=== PATIENT | female | born 1995 | race Caucasian/White ===

== ENCOUNTER 2022-12-29 13:35 | Observation (INO) | payer OTHER, SELFPAY ==
[2022-12-29 14:23] VITALS: BMI 33.6
[2022-12-29] MEDS ORDERED: hydrALAZINE 20 MG/ML VIAL SLOW IVP PRN ×2 (14:51→19:54)
[2022-12-29] MEDS ORDERED: Ondansetron PF 4 MG/2 ML Vial IVP SCH (15:00)
[2022-12-29] MEDS ORDERED: Acetaminophen 500 MG TAB PO SCH ×2 (15:00→20:00)
[2022-12-29] MEDS ORDERED: Lactated Ringer's 1,000 ML IV SCH ×2 (15:00→20:00)
[2022-12-29 16:07] LABS: Bilirubin Neg (Negative); Blood, Urine 10 (Negative); Clarity Clear (Clear); Glucose, Urine (Dipstick) Normal (Negative); Ketone, Urine 50 mg/dL (Negative); Leukocyte Negative (Negative); Nitrite Negative (Negative); Protein, Urine (Dipstick) Negative (Neg-Trace); Urobilinogen Normal mg/dL (Less than 2)
[2022-12-29 16:13] LABS: #Monocytes 0.5 10x3/uL (0.0-1.1); #Neutrophils 9.4 10x3/uL (1.5-8.4); %Basophils 0.3 % (0.0-2.0); %Eosinophils 0.1 % (0.0-6.0); %Lymphocytes 3.3 % (18.0-47.0); %Monocytes 5.2 % (0.0-10.0); %Neutrophils 90.5 % (40.0-75.0); Hematocrit 34.3 % (34.9-44.5); Hemoglobin 11.2 g/dL (12.0-15.5); Mean Corpuscular HGB CONC 32.7 g/dL (32.0-36.0); Mean Corpuscular Hemoglobin 27.7 pg (27.0-33.0); Mean Corpuscular Volume 84.9 fl (81.6-98.3); Mean Platelet Volume 11.1 fl (7.4-10.4); Platelet Count 186 10x3/uL (150-450); RBC Distribution Width 13.8 % (11.5-14.5); Red Blood Cell (RBC) Count 4.04 10x6/uL (3.90-5.03); White Blood Cell (WBC) Count 10.4 10x3/uL (3.5-10.5)
[2022-12-29 16:17] LABS: Bacteria/HPF 2+ HPF (None Seen); CAUTI Indications for Culture Pregnancy; RBC/HPF 0-3 HPF (0-3)
[2022-12-29 16:20] LABS: Mucous/LPF Rare LPF (<2+)
[2022-12-29 16:21] LABS: Urine Culture Reflex Yes Yes
[2022-12-29 16:38] LABS: ALT (SGPT) 13 U/L (8-55); AST (SGOT) 20 U/L (5-34); Albumin 3.3 g/dL (3.5-5.0); Alkaline Phosphatase 89 U/L (40-110); Anion Gap 15 mmol/L (10-20); BUN (Urea Nitrogen) 6 mg/dL (7.0-18.7); Calc. Creatinine Clearance 154 mL/min (70-130); Calcium 9.2 mg/dL (7.8-10.44); Carbon Dioxide 20 mmol/L (22-29); Chloride 102 mmol/L (98-107); Estimated GFR 118; Glucose 82 mg/dL (70-105); Potassium 3.9 mmol/L (3.5-5.1); Protein, Total 6.3 g/dL (6.0-8.3); Sodium 133 mmol/L (136-145)
[2022-12-29 17:52] LABS: Fetal Membranes Rupture No Membranes Rupture (No Rupture)
[2022-12-29] MEDS ORDERED: cefTRIAXone\\ROCEPHIN 1 GM in Sodium Chloride 0.9% 100 ML IVPB SCH (18:30)
[2022-12-29] MEDS ORDERED: Dextrose 5%-Lactated Ringers 1,000 ML IV SCH ×2 (18:30→20:00)
[2022-12-29] MEDS ORDERED: Acetaminophen 500 MG TAB PO PRN (19:54)
[2022-12-29] MEDS ORDERED: Ondansetron PF 4 MG/2 ML Vial IVP PRN (19:54)
[2022-12-30] MEDS ORDERED: Methylergonovine 0.2 MG/ML VIAL IM SCH (00:30)
[2022-12-30] MEDS ORDERED: Morphine 4 MG/ML VIAL SLOW IVP SCH (03:15)
[2022-12-30 04:29] LABS: #Monocytes 0.6 10x3/uL (0.0-1.1); #Neutrophils 6.6 10x3/uL (1.5-8.4); %Basophils 0.3 % (0.0-2.0); %Eosinophils 0.1 % (0.0-6.0); %Lymphocytes 7.2 % (18.0-47.0); %Monocytes 7.4 % (0.0-10.0); %Neutrophils 83.7 % (40.0-75.0); Hematocrit 30.1 % (34.9-44.5); Hemoglobin 9.8 g/dL (12.0-15.5); Mean Corpuscular HGB CONC 32.6 g/dL (32.0-36.0); Mean Corpuscular Hemoglobin 27.8 pg (27.0-33.0); Mean Corpuscular Volume 85.3 fl (81.6-98.3); Mean Platelet Volume 11.1 fl (7.4-10.4); Platelet Count 157 10x3/uL (150-450); RBC Distribution Width 13.9 % (11.5-14.5); Red Blood Cell (RBC) Count 3.53 10x6/uL (3.90-5.03); White Blood Cell (WBC) Count 7.8 10x3/uL (3.5-10.5)
[2022-12-30 04:36] LABS: ALT (SGPT) 13 U/L (8-55); AST (SGOT) 23 U/L (5-34); Albumin 2.9 g/dL (3.5-5.0); Alkaline Phosphatase 79 U/L (40-110); Anion Gap 13 mmol/L (10-20); BUN (Urea Nitrogen) 4 mg/dL (7.0-18.7); Bilirubin, Total 0.6 mg/dL (0.2-1.2); Calc. Creatinine Clearance 161 mL/min (70-130); Calcium 8.4 mg/dL (7.8-10.44); Carbon Dioxide 18 mmol/L (22-29); Chloride 108 mmol/L (98-107); Estimated GFR 121; Globulin 2.7 g/dL (2.4-3.5); Glucose 95 mg/dL (70-105); Potassium 3.5 mmol/L (3.5-5.1); Protein, Total 5.6 g/dL (6.0-8.3); Sodium 135 mmol/L (136-145)
[2022-12-30] MEDS ORDERED: Aspirin Chewable 81 MG TAB PO SCH (09:00)
== END 2022-12-30 08:38 | disposition home or self-care (01) ==
LOC: CSHLD/OP 13:35 → CSHLD 22:44
PROVIDERS: ADMIT Obstetrics & Gynecology; ATTEND Obstetrics & Gynecology
DX: O47.03 False labor before 37 completed weeks of gestation, third trimester (principal); O99.891 Other specified diseases and conditions complicating pregnancy; R50.9 Fever, unspecified; O10.913 Unspecified pre-existing hypertension complicating pregnancy, third trimester; O99.513 Diseases of the respiratory system complicating pregnancy, third trimester; J45.990 Exercise induced bronchospasm; O99.343 Other mental disorders complicating pregnancy, third trimester; F90.9 Attention-deficit hyperactivity disorder, unspecified type; Z3A.36 36 weeks gestation of pregnancy; Z79.899 Other long term (current) drug therapy; Z79.82 Long term (current) use of aspirin
CPT/HCPCS: 36415; 76815; 76819; 80053; 81001; 84112; 85025; 87086; 96374; 99285; G0378; J0696; J2270; J2405; J3490

== ENCOUNTER 2023-01-05 12:34 | Inpatient (IN) | payer OTHER ==
[2023-01-05 12:54] VITALS: BMI 33.6
[2023-01-05] MEDS ORDERED: hydrALAZINE 20 MG/ML VIAL SLOW IVP PRN ×2 (13:23→17:34)
[2023-01-05 14:31] LABS: Hematocrit 33.1 % (34.9-44.5); Hemoglobin 10.8 g/dL (12.0-15.5); Mean Corpuscular HGB CONC 32.6 g/dL (32.0-36.0); Mean Corpuscular Hemoglobin 27.2 pg (27.0-33.0); Mean Corpuscular Volume 83.4 fl (81.6-98.3); Platelet Count 263 10x3/uL (150-450); RBC Distribution Width 13.4 % (11.5-14.5); Red Blood Cell (RBC) Count 3.97 10x6/uL (3.90-5.03); White Blood Cell (WBC) Count 8.5 10x3/uL (3.5-10.5)
[2023-01-05 14:38] LABS: ALT (SGPT) 40 U/L (8-55); AST (SGOT) 47 U/L (5-34); Albumin 3.2 g/dL (3.5-5.0); Alkaline Phosphatase 95 U/L (40-110); Anion Gap 15 mmol/L (10-20); BUN (Urea Nitrogen) 7 mg/dL (7.0-18.7); Bilirubin, Total 0.3 mg/dL (0.2-1.2); Calc. Creatinine Clearance 156 mL/min (70-130); Calcium 9.2 mg/dL (7.8-10.44); Carbon Dioxide 20 mmol/L (22-29); Chloride 104 mmol/L (98-107); Estimated GFR 120; Globulin 3.1 g/dL (2.4-3.5); Glucose 99 mg/dL (70-105); Protein, Total 6.3 g/dL (6.0-8.3); Sodium 135 mmol/L (136-145)
[2023-01-05 15:10] LABS: Creatinine, Urine 29.68 mg/dL (47-110); Protein, Urine Random Quant Less than 10 mg/dL (1-14)
[2023-01-05 16:40] LABS: Syphilis Antibody Nonreactive (Nonreactive); Syphilis Antibody Index 0.03 S/CO (<1.00 Non-Reactive)
[2023-01-05 16:42] LABS: HBSAg Index 0.16 S/CO (0-0.99); HIV (1/2) Antibody/Antigen Non-Reactive (NonReactive); HIV 1/2 INDEX 0.16 S/CO (<1.00); Hep B Surf Ag - L&D Non-Reactive S/CO (NonReactive)
[2023-01-05] MEDS ORDERED: fentaNYL 50 mcg/mL 1 mL Vial SLOW IVP PRN (17:34)
[2023-01-05] MEDS ORDERED: Ondansetron PF 4 MG/2 ML Vial IVP PRN (17:34)
[2023-01-05] MEDS ORDERED: HYDROcodone/Acetaminophen 5/325 mg Tablet PO PRN ×2 (17:34)
[2023-01-05] MEDS ORDERED: Lidocaine 1% (PF) 30 ML VIAL SC PRN (17:34)
[2023-01-05] MEDS ORDERED: Ibuprofen 800 MG TAB PO PRN (17:34)
[2023-01-05] MEDS ORDERED: Promethazine HCl 25 MG/ML VIAL IM PRN (17:34)
[2023-01-05] MEDS ORDERED: Lactated Ringer's 1,000 ML IV SCH (17:45)
[2023-01-05] MEDS ORDERED: Misoprostol 100 MCG TAB VAG SCH (17:45)
[2023-01-05] MEDS ORDERED: Oxytocin 30 units/NS 500 ML 500 ML IV SCH ×3 (17:45)
[2023-01-05] MEDS: Misoprostol 100 MCG TAB VAG SCH (21:30)
[2023-01-05] MEDS ORDERED: Calcium Carbonate 500 MG ChewTAB PO PRN (21:55)
[2023-01-06] MEDS: Misoprostol 100 MCG TAB VAG SCH (00:35)
[2023-01-06] MEDS ORDERED: Dinoprostone 10 MG Suppository VAG SCH (08:00)
[2023-01-06 08:39] LABS: Hematocrit 35.3 % (34.9-44.5); Hemoglobin 11.7 g/dL (12.0-15.5); Mean Corpuscular HGB CONC 33.1 g/dL (32.0-36.0); Mean Corpuscular Hemoglobin 27.4 pg (27.0-33.0); Mean Corpuscular Volume 82.7 fl (81.6-98.3); Platelet Count 290 10x3/uL (150-450); RBC Distribution Width 13.4 % (11.5-14.5); Red Blood Cell (RBC) Count 4.27 10x6/uL (3.90-5.03)
[2023-01-06 08:59] LABS: ALT (SGPT) 40 U/L (8-55); AST (SGOT) 39 U/L (5-34); Albumin 3.4 g/dL (3.5-5.0); Alkaline Phosphatase 98 U/L (40-110); Anion Gap 15 mmol/L (10-20); BUN (Urea Nitrogen) 7 mg/dL (7.0-18.7); Bilirubin, Total 0.3 mg/dL (0.2-1.2); Calc. Creatinine Clearance 161 mL/min (70-130); Calcium 9.4 mg/dL (7.8-10.44); Carbon Dioxide 20 mmol/L (22-29); Chloride 106 mmol/L (98-107); Estimated GFR 121; Globulin 3.3 g/dL (2.4-3.5); Glucose 81 mg/dL (70-105); Potassium 4.1 mmol/L (3.5-5.1); Protein, Total 6.7 g/dL (6.0-8.3); Sodium 137 mmol/L (136-145)
[2023-01-06] MEDS ORDERED: fentaNYL/Ropivacaine Epidural 100 ML ONE (10:40)
[2023-01-06] MEDS ORDERED: Moisturizing Cream (Eucerin) 113 GM JAR TOP PRN ×2 (10:41→14:53)
[2023-01-06] MEDS ORDERED: diphenhydrAMINE 50 MG/ML VIAL IVP PRN ×2 (10:41→14:53)
[2023-01-06] MEDS ORDERED: Ondansetron PF 4 MG/2 ML Vial IVP PRN ×4 (10:41→17:06)
[2023-01-06] MEDS ORDERED: Acetaminophen 325 MG TAB PO PRN ×2 (10:41→17:06)
[2023-01-06] MEDS ORDERED: Naloxone HCl 0.4 mg/ml Vial IVP PRN ×4 (10:41→14:53)
[2023-01-06] MEDS ORDERED: Promethazine HCl 25 MG/ML VIAL IM PRN ×2 (10:41→14:53)
[2023-01-06] MEDS ORDERED: Lactated Ringer's 500 ML IV PRN (10:41)
[2023-01-06] MEDS ORDERED: ePHEDrine Sulfate 50 MG/10 ML VIAL SLOW IVP PRN (10:41)
[2023-01-06] MEDS ORDERED: fentaNYL 2 mcg/Ropivacaine 0.2% Epidural 100 ML CADD EPIDURAL SCH (10:45)
[2023-01-06] MEDS ORDERED: Communication Order-Pharmacy FS SCH ×2 (10:45→15:00)
[2023-01-06] MEDS ORDERED: Oxytocin 10 UNITS/ML VIAL ONE ×3 (13:49→14:38)
[2023-01-06] MEDS ORDERED: Chloroprocaine 3% PF 20 ML VIAL ONE (13:50)
[2023-01-06] MEDS ORDERED: Ondansetron PF 4 MG/2 ML Vial ONE (13:53)
[2023-01-06] MEDS ORDERED: Dexamethasone 4 mg/ml Vial ONE (13:53)
[2023-01-06] MEDS ORDERED: CEFAZOLIN 2 GM VIAL ONE (13:53)
[2023-01-06] MEDS ORDERED: Ketorolac Tromethamine 30 MG/ML VIAL ONE (13:53)
[2023-01-06] MEDS ORDERED: Famotidine/PF 20 mg/2ml Vial SLOW IVP PRN (13:56)
[2023-01-06] MEDS ORDERED: Bicitra 30 ML UDCUP PO PRN (13:56)
[2023-01-06] MEDS ORDERED: CEFAZOLIN 2 GM in Sodium Chloride 0.9% 100 ML IVPB SCH (14:00)
[2023-01-06] MEDS ORDERED: Morphine PF 10 MG/10 ML VIAL ONE (14:14)
[2023-01-06] MEDS ORDERED: Meperidine HCl/PF 25 MG/ML VIAL SLOW IVP PRN (14:53)
[2023-01-06] MEDS ORDERED: fentaNYL 50 mcg/mL 1 mL Vial SLOW IVP PRN (14:53)
[2023-01-06] MEDS ORDERED: Promethazine HCl 25 MG SUPP PR PRN (14:53)
[2023-01-06] MEDS ORDERED: Ketorolac Tromethamine 30 MG/ML VIAL IVP PRN (14:53)
[2023-01-06] MEDS ORDERED: Naloxone HCl 0.4 mg/ml Vial IV PRN (14:53)
[2023-01-06] MEDS ORDERED: Simethicone Chewable 80 MG TAB PO PRN (17:06)
[2023-01-06] MEDS ORDERED: hydrALAZINE 20 MG/ML VIAL SLOW IVP PRN (17:06)
[2023-01-06] MEDS ORDERED: diphenhydrAMINE 25 MG CAP PO PRN (17:06)
[2023-01-06] MEDS ORDERED: Boostrix 0.5 ML (Tdap) VIAL (>/=7 yrs of age) IM ONE (17:06)
[2023-01-06] MEDS ORDERED: Bisacodyl 10 MG SUPP PR PRN (17:06)
[2023-01-06] MEDS ORDERED: Lanolin Ointment 7 GM TUBE TOP PRN (17:06)
[2023-01-06] MEDS ORDERED: Morphine 2 MG/ML VIAL SLOW IVP PRN (18:46)
[2023-01-06] MEDS ORDERED: Ketorolac Tromethamine 30 MG/ML VIAL IVP SCH (20:00)
[2023-01-07] MEDS ORDERED: HYDROcodone/Acetaminophen 5/325 mg Tablet PO PRN (03:00)
[2023-01-07] MEDS: Ferrous Sulfate 325 MG TAB PO SCH ×3 (05:26→21:12)
[2023-01-07] MEDS: Docusate 100 MG CAP PO SCH ×3 (05:26→21:13)
[2023-01-07] MEDS: Ibuprofen 800 MG TAB PO SCH ×3 (05:26→19:39)
[2023-01-07 05:55] LABS: Hematocrit 27.3 % (34.9-44.5); Mean Corpuscular Volume 84.8 fl (81.6-98.3); Mean Platelet Volume 11.7 fl (7.4-10.4); Platelet Count 304 10x3/uL (150-450); RBC Distribution Width 13.5 % (11.5-14.5); Red Blood Cell (RBC) Count 3.22 10x6/uL (3.90-5.03); White Blood Cell (WBC) Count 15.9 10x3/uL (3.5-10.5)
[2023-01-07] MEDS: Prenatal Vitamin 1 TAB PO SCH (07:57)
[2023-01-07] MEDS: HYDROcodone/Acetaminophen 5/325 mg Tablet PO PRN ×2 (12:51→21:13)
[2023-01-08] MEDS ORDERED: Polyethylene Glycol 3350 17 GM Packet PO SCH ×2 (02:00→04:15)
[2023-01-08] MEDS: Ibuprofen 800 MG TAB PO SCH (04:15)
[2023-01-08 06:05] VITALS: TEMP 98.4
[2023-01-08] MEDS: HYDROcodone/Acetaminophen 5/325 mg Tablet PO PRN ×2 (06:16→09:46)
[2023-01-08 08:33] VITALS: BP 137/75
[2023-01-08] MEDS ORDERED: Senokot S 8.6-50 MG TAB PO SCH (09:00)
[2023-01-08] MEDS: Docusate 100 MG CAP PO SCH (09:38)
[2023-01-08] MEDS: Prenatal Vitamin 1 TAB PO SCH (09:38)
[2023-01-08] MEDS: Ferrous Sulfate 325 MG TAB PO SCH (09:38)
== END 2023-01-08 11:30 | disposition home or self-care (01) | DRG 788 ==
LOC: CSHLD/OP 12:34 → CSHLD 15:42 → CSHPP 01-06 17:20
PROVIDERS: ADMIT Obstetrics & Gynecology; ATTEND Obstetrics & Gynecology
PROC: 10D00Z1 Extraction of Products of Conception, Low, Open Approach (ICD-10-PCS; principal; 2023-01-06)
DX: O10.92 Unspecified pre-existing hypertension complicating childbirth (principal); O62.1 Secondary uterine inertia; Z3A.37 37 weeks gestation of pregnancy; Z37.0 Single live birth; Z88.2 Allergy status to sulfonamides; O76 Abnormality in fetal heart rate and rhythm complicating labor and delivery
CPT/HCPCS: 36415; 51702; 80053; 82570; 84156; 85027; 86780; 86850; 86900; 86901; 87340; 87389; J1100; J1885; J2175; J2272; J2274; J2401; J2405; J2590; J3010; J7120